=== PATIENT | male | born 2005 ===

== ENCOUNTER 2024-07-14 22:12 | Emergency (ER) | payer SELFPAY ==
[~2024-07-14] VITALS: Ht 175.3 cm; Wt 89.0 kg
[2024-07-14 22:22] VITALS: BP 133/106; RESP 20; TEMP 98.2
[2024-07-14 23:17] VITALS: PULSE 114; O2SAT 95
== END 2024-07-14 23:18 ==
LOC: ER 22:14
DX: Z04.1 Encounter for examination and observation following transport accident (principal); V49.88XA Car occupant (driver) (passenger) injured in other specified transport accidents, initial encounter; Y93.89 Activity, other specified; Y92.89 Other specified places as the place of occurrence of the external cause; Y99.8 Other external cause status
CPT/HCPCS: 99283